=== PATIENT | female | born 1995 | race Caucasian/White ===

== ENCOUNTER 2019-09-11 07:44 | Observation (INO) | payer OTHER ==
[~2019-09-11] VITALS: Ht 160 cm; Wt 83.1 kg
[2019-09-11 07:47] VITALS: BP 127/79; TEMP 101.2
[2019-09-11 08:35] LABS: PLATELET COUNT 191 K/uL (152-353)
[2019-09-11 09:00] VITALS: BP 122/70
[2019-09-11 10:00] VITALS: BP 118/76
[2019-09-11 10:45] VITALS: BP 123/73; TEMP 99.1
[2019-09-11 18:19] VITALS: BP 130/66; TEMP 102.2; Ht 160 cm; Wt 83.1 kg
[2019-09-11 20:00] VITALS: BP 121/60; TEMP 103
[2019-09-12] VITALS: BP 100/64; TEMP 99.4
[2019-09-12 04:00] VITALS: BP 109/65; TEMP 99.5
[2019-09-12 05:24] LABS: PLATELET COUNT 126 K/uL (152-353)
[2019-09-12 05:27] LABS: POTASSIUM 3.1 mmol/L (3.6-5.2)
[2019-09-12 08:00] VITALS: BP 101/40; TEMP 102.9
[2019-09-12 16:00] VITALS: BP 103/58; TEMP 103.7
[2019-09-12 20:00] VITALS: BP 109/68; TEMP 98.7
[2019-09-13] VITALS: BP 111/58; TEMP 98.1
[2019-09-13 04:00] VITALS: BP 130/87; TEMP 99
[2019-09-13 04:47] LABS: PLATELET COUNT 126 K/uL (152-353)
[2019-09-13 05:05] LABS: POTASSIUM 3.3 mmol/L (3.6-5.2)
[2019-09-13 08:00] VITALS: BP 119/61; TEMP 97.7
[2019-09-13 12:00] VITALS: BP 107/82; TEMP 99.3
[2019-09-13 16:00] VITALS: BP 122/67; TEMP 97.9
== END 2019-09-13 16:40 | disposition home or self-care (01) ==
LOC: ED 07:44 → MED/SURG 10:02
PROVIDERS: Family Medicine; Internal Medicine; ADMIT Emergency Medicine
DX: N10 Acute pyelonephritis (principal); E87.6 Hypokalemia; Z71.6 Tobacco abuse counseling
CPT/HCPCS: 36415; 80048; 80053; 81000; 81025; 83605; 85027; 87040; 96360; 96365; 96375; 99220; 99284; G0378; J0696; J1885; J2270; J2405; J2543; J3370